=== PATIENT | male | born 1990 | race Two or more races ===

== ENCOUNTER 2023-07-22 17:35 | Inpatient (IN) | payer MEDICAID, OTHER ==
[~2023-07-22] VITALS: Ht 170.2 cm; Wt 73.1 kg
[2023-07-22] MEDS ORDERED: ONDANSETRON ODT 4 MG TAB PO ONE (21:45)
[2023-07-22] MEDS ORDERED: MORPHINE SULFATE 4 MG/ML SYR/VIAL IM ONE (21:45)
[2023-07-22 22:23] LABS: Basophils # (auto) 0 10 ^3/uL (0-0.2); Basophils % (auto) 0.1 % (0.0-2.0); Eosinophils # (auto) 0.1 10 ^3/uL (0-0.8); Eosinophils % (auto) 1.3 % (0.0-7.0); Hematocrit 40.7 % (41.0-53.0); Lymphocytes # (auto) 3.4 10 ^3/uL (0.4-5.4); Lymphocytes % (auto) 43.7 % (10.0-50.0); Mean Corpuscular Hemoglobin 30.7 pg (28.0-32.0); Mean Corpuscular Hgb Conc. 34.4 g/dL (32.0-36.0); Mean Corpuscular Volume 89.1 fL (80.0-100.0); Monocytes # (auto) 0.5 10 ^3/uL (0-1.3); Monocytes % (auto) 6.7 % (0.0-12.0); Neutrophils # (auto) 3.7 10 ^3/uL (1.6-8.6); Neutrophils % (auto) 48.2 % (37.0-80.0); Nucleated Red Blood Cells % 0.1 %; Red Blood Cells 4.57 10^6/uL (4.5-5.90); Red Cell Distribution Width 13.4 % (11.8-14.3); White Blood Cell 7.7 10^3/uL (4.4-10.8)
[2023-07-22 22:36] LABS: Alanine Aminotransferase 19 U/L (7-40); Alkaline Phosphatase 75 U/L (46-116); Anion Gap 8 (5-15); Aspartate Aminotransferase 18 U/L (13-40); BUN/Creatinine Ratio 8.5 (10.0-20.0); Blood Urea Nitrogen 7 mg/dL (9-23); Calcium 9.7 mg/dL (8.7-10.4); Carbon Dioxide 27 mmol/L (20-30); Chloride 103 mmol/L (98-107); Glucose 130 mg/dL (74-106); Lipase 39 U/L (12-53); Magnesium 2.1 mg/dL (1.6-2.6); Potassium 3.8 mmol/L (3.5-5.1); Sodium 138 mmol/L (136-145)
[2023-07-22 22:37] LABS: Bilirubin, Total 0.4 mg/dL (0.2-1.0); Total Protein 7.6 g/dL (5.7-8.2)
[2023-07-23] MEDS ORDERED: ONDANSETRON HCL 4 MG/2 ML VIAL IV ONE (03:30)
[2023-07-23] MEDS ORDERED: MORPHINE SULFATE 4 MG/ML SYR/VIAL IV ONE (03:30)
[2023-07-23] MEDS: ENOXAPARIN SOD 80 MG/0.8ML SYRINGE SC ONE ×2 (04:30→06:36)
[2023-07-23] MEDS ORDERED: HYDROcodone-ACET 5/325MG TAB PO PRN (05:00)
[2023-07-23] MEDS ORDERED: MORPHINE SULFATE INJ 2 MG/ml SYRG IV PRN ×2 (05:00→06:30)
[2023-07-23] MEDS ORDERED: DEXTROSE (50%) 50ML SYRG IV PRN (05:00)
[2023-07-23] MEDS ORDERED: DOCUSATE SOD 100 MG CAP PO PRN (05:00)
[2023-07-23] MEDS ORDERED: ACETAMINOPHEN 325 MG TAB PO PRN (05:00)
[2023-07-23] MEDS ORDERED: NITROGLYCERIN 0.4 MG SL TAB SL PRN (06:30)
[2023-07-23] MEDS: SODIUM CHLORIDE 0.9% 1,000 ML IV SCH (06:35)
[2023-07-23] MEDS: InsuLIN REG 1unit/0.01ml Soln (100units/ml) SC SCH ×3 (06:40→18:02)
[2023-07-23] MEDS: ACCU-CHEK COMFORT CURVE STRIP VI SCH ×4 (06:43→23:28)
[2023-07-23 07:44] LABS: Alanine Aminotransferase 21 U/L (7-40); Alkaline Phosphatase 61 U/L (46-116); Anion Gap 7 (5-15); Aspartate Aminotransferase 12 U/L (13-40); BUN/Creatinine Ratio 9.8 (10.0-20.0); Blood Urea Nitrogen 8 mg/dL (9-23); Calcium 9.4 mg/dL (8.5-10.1); Carbon Dioxide 27 mmol/L (20-30); Chloride 102 mmol/L (98-107); Glucose 150 mg/dL (74-106); Potassium 3.8 mmol/L (3.5-5.1); Sodium 136 mmol/L (136-145)
[2023-07-23 07:45] LABS: Bilirubin, Total 0.8 mg/dL (0.2-1.0); Total Protein 7.4 g/dL (5.7-8.2)
[2023-07-23 07:54] LABS: Basophils # (auto) 0 10 ^3/uL (0-0.2); Basophils % (auto) 0.4 % (0.0-2.0); Eosinophils # (auto) 0.1 10 ^3/uL (0-0.8); Eosinophils % (auto) 1.5 % (0.0-7.0); Hematocrit 39.4 % (41.0-53.0); Hemoglobin 13.4 g/dL (13.5-17.5); Lymphocytes # (auto) 2.6 10 ^3/uL (0.4-5.4); Lymphocytes % (auto) 39.8 % (10.0-50.0); Mean Corpuscular Hemoglobin 30.3 pg (28.0-32.0); Mean Corpuscular Volume 89.2 fL (80.0-100.0); Monocytes # (auto) 0.5 10 ^3/uL (0-1.3); Neutrophils # (auto) 3.4 10 ^3/uL (1.6-8.6); Neutrophils % (auto) 51.3 % (37.0-80.0); Nucleated Red Blood Cells % 0.1 %; Red Blood Cells 4.41 10^6/uL (4.5-5.90); Red Cell Distribution Width 13.5 % (11.8-14.3); White Blood Cell 6.6 10^3/uL (4.4-10.8)
[2023-07-23] MEDS: ONDANSETRON HCL 4 MG/2 ML VIAL IV PRN ×3 (08:07→16:13)
[2023-07-23] MEDS: HYDROmorphone HCL 2 MG/ML VL/or syr IV PRN ×4 (08:08→20:27)
[2023-07-23 08:45] VITALS: RESP 18
[2023-07-23] MEDS ORDERED: IOHEXOL 300 MG/ML 100ML BOTTLE IJ ONE (08:58)
[2023-07-23] MEDS ORDERED: METF-370 PO (11:15)
[2023-07-23 11:32] LABS: Partial Thromboplastin Time 32.4 SEC (24.5-34.5); Prothrombin Time 10.5 sec (9.3-11.8)
[2023-07-23 13:00] VITALS: BP 133/84; PULSE 55; RESP 19; TEMP 97; O2SAT 98
[2023-07-23 14:24] LABS: Triglycerides 459 mg/dL (< 150)
[2023-07-23 14:26] LABS: Cholesterol 169 mg/dL (< 200); HDL Cholesterol 35 mg/dL (40-59)
[2023-07-23 17:00] VITALS: BP 123/78; PULSE 64; RESP 18; TEMP 98.7; O2SAT 99
[2023-07-23 20:00] VITALS: PULSE 53; PULSE 58; RESP 17; O2SAT 98
[2023-07-23 22:00] VITALS: BP 131/83; PULSE 58; RESP 17; TEMP 97.7; O2SAT 98
[2023-07-23] MEDS ORDERED: ENOXAPARIN SOD 80 MG/0.8ML SYRINGE SC SCH (22:00)
[2023-07-23] MEDS ORDERED: InsuLIN REG 1unit/0.01ml Soln (100units/ml) SC SCH (22:00)
[2023-07-24] MEDS: HYDROmorphone HCL 2 MG/ML VL/or syr IV PRN ×3 (00:58→10:44)
[2023-07-24] MEDS: SODIUM CHLORIDE 0.9% 1,000 ML IV SCH ×2 (01:02→15:17)
[2023-07-24 05:00] VITALS: BP 131/73; PULSE 66; RESP 17; TEMP 98.1; O2SAT 95
[2023-07-24 05:32] LABS: Basophils # (auto) 0 10 ^3/uL (0-0.2); Basophils % (auto) 0.3 % (0.0-2.0); Eosinophils # (auto) 0.1 10 ^3/uL (0-0.8); Eosinophils % (auto) 1.9 % (0.0-7.0); Hematocrit 39.3 % (41.0-53.0); Hemoglobin 13.3 g/dL (13.5-17.5); Lymphocytes # (auto) 2.4 10 ^3/uL (0.4-5.4); Lymphocytes % (auto) 41.5 % (10.0-50.0); Mean Corpuscular Hemoglobin 30.5 pg (28.0-32.0); Mean Corpuscular Hgb Conc. 33.8 g/dL (32.0-36.0); Monocytes # (auto) 0.4 10 ^3/uL (0-1.3); Neutrophils # (auto) 2.8 10 ^3/uL (1.6-8.6); Neutrophils % (auto) 49.3 % (37.0-80.0); Red Blood Cells 4.36 10^6/uL (4.5-5.90); White Blood Cell 5.7 10^3/uL (4.4-10.8)
[2023-07-24 05:58] LABS: Alanine Aminotransferase 16 U/L (7-40); Albumin 4.4 g/dL (3.2-4.8); Alkaline Phosphatase 59 U/L (46-116); Anion Gap 5 (5-15); Aspartate Aminotransferase 17 U/L (13-40); Bilirubin, Total 0.8 mg/dL (0.2-1.0); Carbon Dioxide 27 mmol/L (20-30); Chloride 105 mmol/L (98-107); Glucose 130 mg/dL (74-106); Potassium 4.1 mmol/L (3.5-5.1); Sodium 137 mmol/L (136-145); Total Protein 6.6 g/dL (5.7-8.2)
[2023-07-24 05:59] LABS: Blood Urea Nitrogen < 5 mg/dL (9-23)
[2023-07-24] MEDS: ACCU-CHEK COMFORT CURVE STRIP VI SCH ×2 (06:05→12:17)
[2023-07-24] MEDS: InsuLIN REG 1unit/0.01ml Soln (100units/ml) SC SCH ×2 (06:10→11:30)
[2023-07-24 08:00] VITALS: PULSE 57; PULSE 64; RESP 14; O2SAT 98
[2023-07-24 09:00] VITALS: BP 108/72; PULSE 64; RESP 14; TEMP 97.7; O2SAT 98
[2023-07-24] MEDS ORDERED: ENOXAPARIN SOD 80 MG/0.8ML SYRINGE SC SCH (10:00)
[2023-07-24 13:00] VITALS: BP 128/78; PULSE 61; RESP 18; TEMP 97.5; O2SAT 99
[2023-07-24] MEDS ORDERED: MORPHINE SULFATE INJ 2 MG/ml SYRG IV PRN ×3 (14:45→15:15)
[2023-07-24 15:18] VITALS: BP 127/76; PULSE 58; RESP 18
[2023-07-24] MEDS ORDERED: SUCRALFATE 1 GM TAB PO SCH (17:00)
[2023-07-24] MEDS ORDERED: PANTOPRAZOLE 40 MG/10 ML VIAL INJ IV SCH (22:00)
== END 2023-07-24 15:40 | disposition left against medical advice (07) | DRG 241 ==
LOC: ER 17:35 → TELE 07-23 06:32 → TELE-WESTW 07-23 11:02
PROVIDERS: ADMIT Internal Medicine Pulmonary Disease; ATTEND Student in an Organized Health Care Education/Training Program
DX: K29.70 Gastritis, unspecified, without bleeding (principal); E11.65 Type 2 diabetes mellitus with hyperglycemia; E78.1 Pure hyperglyceridemia; F17.290 Nicotine dependence, other tobacco product, uncomplicated; K86.1 Other chronic pancreatitis; G89.29 Other chronic pain; Z82.49 Family history of ischemic heart disease and other diseases of the circulatory system; Z83.3 Family history of diabetes mellitus; Z87.19 Personal history of other diseases of the digestive system; Z91.199 Patient's noncompliance with other medical treatment and regimen due to unspecified reason; Z53.29 Procedure and treatment not carried out because of patient's decision for other reasons
CPT/HCPCS: 36415; 74176; 74177; 80053; 80061; 82010; 82962; 83036; 83690; 83735; 83930; 84484; 85025; 85610; 85730; 93306; G0378; J1815; J2405; Q0162

== ENCOUNTER 2023-11-24 20:12 | Emergency (ER) | payer MEDICAID ==
[~2023-11-24] VITALS: Ht 170.2 cm; Wt 65.6 kg
[~2023-11-24 20:12] MED LIST: METF-370 PO
[2023-11-24 21:34] LABS: Basophils # (auto) 0 10 ^3/uL (0-0.2); Basophils % (auto) 0.4 % (0.0-2.0); Eosinophils # (auto) 0.1 10 ^3/uL (0-0.8); Eosinophils % (auto) 1.5 % (0.0-7.0); Hematocrit 39.8 % (41.0-53.0); Hemoglobin 13.3 g/dL (13.5-17.5); Lymphocytes # (auto) 3.1 10 ^3/uL (0.4-5.4); Lymphocytes % (auto) 40.5 % (10.0-50.0); Mean Corpuscular Hemoglobin 28.9 pg (28.0-32.0); Mean Corpuscular Hgb Conc. 33.4 g/dL (32.0-36.0); Mean Corpuscular Volume 86.6 fL (80.0-100.0); Monocytes # (auto) 0.6 10 ^3/uL (0-1.3); Monocytes % (auto) 8.2 % (0.0-12.0); Neutrophils # (auto) 3.7 10 ^3/uL (1.6-8.6); Neutrophils % (auto) 49.4 % (37.0-80.0); Nucleated Red Blood Cells % 0.1 %; Red Blood Cells 4.59 10^6/uL (4.5-5.90); Red Cell Distribution Width 14.3 % (11.8-14.3); White Blood Cell 7.6 10^3/uL (4.4-10.8)
[2023-11-24 21:55] LABS: Alanine Aminotransferase 19 U/L (7-40); Alkaline Phosphatase 79 U/L (46-116); Aspartate Aminotransferase 13 U/L (13-40); BUN/Creatinine Ratio 15.2 (10.0-20.0); Bilirubin, Total 0.5 mg/dL (0.2-1.0); Blood Urea Nitrogen 12 mg/dL (9-23); Chloride 106 mmol/L (98-107); Glucose 205 mg/dL (74-106); Lipase 55 U/L (12-53); Potassium 3.8 mmol/L (3.5-5.1); Sodium 141 mmol/L (136-145); Total Protein 7.4 g/dL (5.7-8.2)
[2023-11-24 22:19] LABS: Anion Gap 8 (5-15); Carbon Dioxide 27 mmol/L (20-30)
[2023-11-25] MEDS: SODIUM CHLORIDE 0.9% 1,000 ML IV ONE (03:00)
[2023-11-25] MEDS: HYDROmorphone HCL 2 MG/ML VL/or syr IM ONE (03:00)
[2023-11-25 06:02] VITALS: BP 118/66; PULSE 61; RESP 14; TEMP 98; O2SAT 99
== END 2023-11-25 07:50 | disposition left against medical advice (07) ==
LOC: ER 20:12
DX: K85.90 Acute pancreatitis without necrosis or infection, unspecified (principal); K86.3 Pseudocyst of pancreas; E11.65 Type 2 diabetes mellitus with hyperglycemia; Z79.899 Other long term (current) drug therapy
CPT/HCPCS: 36415; 74176; 80053; 83690; 85025; 96360; 96361; 96372; 99285; J1170; J7030

== ENCOUNTER 2025-09-09 23:49 | Inpatient (IN) | payer MEDICAID ==
[~2025-09-09] VITALS: Ht 167.6 cm; Wt 67.1 kg
--- NOTE | 2025-09-10 01:09 | ED.PDOC ---
History of Present Illness HPI Comments 35-year-old male presents with chief complaint of nonradiating, diffused abdominal pain. Patient reports history of abdominal pain flare-ups with chronic pancreatitis for the past 5-6 years. Most recent onset of pain is stated to have take place, suddenly and unprovoked, yesterday evening. He denies any further associated symptoms, such as nausea or vomiting. Patient reports on being told on needing an endoscopy but has, yet, to have procedure done in addition to being taken off his metformin for the past 2 months. No recent sick contacts, prior ailments, travel, spoiled food consumption, or injuries. Chief Complaint: Abdominal Pain Time Seen by MD: 01:00 Primary Care Provider: Unknown Reviewed Notes: Nurses Notes Allergies: Coded Allergies: NO KNOWN ALLERGIES (Unverified , 07/22/23) Home Meds Reported Medications Metformin Hydrochloride (Metformin Hcl) 500 Mg Tab, 500 MG PO DAILY for 30 Days, MG 07/23/23 Information Source: Patient Mode of Arrival: Ambulatory Severity: Moderate Timing: Hours Duration: Since onset Prehospital treatment: None Past Medical History PAST MEDICAL HISTORY: DM Past Medical History (Other): Chronic pancreatitis Surgical History: Denies all surgeries Family History Family History: Unknown Social History Smoker: Other Alcohol: Denies ETOH Use Drugs: Denies Drug Use Lives In: Home All Other Systems: Reviewed and Negative (Comprehensive review of systems are negative unless otherwise stated in HPI) Physical Exam General Appearance: Mild Distress, Normal HEENT: Normal ENT Inspection, Pharynx Normal, TMs Normal Neck: Full Range of Motion, Non-Tender, Normal, Normal Inspection Respiratory: Chest Non-Tender, Lungs Clear, No Accessory Muscle Use, No Respiratory Distress, Normal Breath Sounds Cardiovascular: No Edema, No JVD, No Murmur, No Gallop, Normal Peripheral Pulses, Regular Rate/Rhythm Breast Exam: Deferred Gastrointestinal: LLQ (Tenderness, mild), LUQ (Tenderness, mild), No Org anomegaly, No Pulsatile Mass, Normal Bowel Sounds, RLQ (Tenderness, mild), RUQ (Tenderness, mild), Soft, Tenderness (Mild tenderness to all 4 quadrants) Genitalia: Deferred Pelvic: Deferred Rectal: Deferred Extremities: No calf tenderness, Normal capillary refill, Normal inspection, Normal range of motion, Non-tender, No pedal edema Musculoskeletal : Apperance: Normal Neurologic: Alert, rotary drum tanner II-XII nml as Tested, No Motor Deficits, Normal Affect, Normal Mood, No Sensory Deficits Cerebellar Function: Normal Reflexes: Normal Skin: Dry, Normal Color, Warm Lymphatic: No Adenopathy Was a procedure done? Was a procedure done?: No Differential Dx Considerations may include: Pancreatitis flare-up, gastritis, gastroenteritis, GERD, cholelithiasis, cholecystitis, appendicitis, diverticulitis, among others X-Ray, Labs, Meds, VS Vital Signs Date Time Temp Pulse Resp B/P (MAP) Pulse Ox O2 Delivery O2 Flow Rate FiO2 09/10/25 03:14 98.4 88 18 133/92 (106) 99 98.4 09/10/25 01:00 98.0 86 20 133/89 (104) 98 98.0 09/09/25 23:57 97.8 79 16 130/95 99 97.8 Lab Test 09/10/25 01:00 09/10/25 00:59 Range/Units Urine Color Light-yellow Yellow Urine Clarity Clear Clear Urine pH 7.0 5.0-9.0 Urine Specific [place] 1.040 H 1.001-1.035 Urine Protein Negative Negative Urine Ketones 1+ H Negative Urine Blood Negative Negative /uL Urine Nitrite Negative Negative Urine Bilirubin Negative Negative Urine Urobilinogen Normal Negative mg/dL Urine Leukocyte Esterase Negative Negative /uL Urine RBC 1 0 - 3 /hpf Urine Microscopic WBC 0-3 /HPF Urine Squamous Epithelial Cells None seen <5 /hpf Urine Bacteria None seen None Seen /hpf Urine Glucose 4+ H Normal mg/dL White Blood Count 6.8 4.4-10.8 10^3/uL Red Blood Count 4.83 4.5-5.90 10^6/uL Hemoglobin 15.8 13.5-17.5 g/dL Hematocrit 41.8 41.0-53.0 % Mean Corpuscular Volume 86.5 80.0-100.0 fL Mean Corpuscular Hemoglobin 32.7 H 28.0-32.0 pg Mean Corpuscular Hemoglobin Concent 37.8 H 32.0-36.0 g/dL Red Cell Distribution Width 13.4 11.8-14.3 % Platelet Count 238 140-450 10^3/uL Mean Platelet Volume 9.8 6.9-10.8 fL Neutrophils (%) (Auto) 55.5 37.0-80.0 % Lymphocytes (%) (Auto) 35.0 10.0-50.0 % Monocytes (%) (Auto) 7.0 0.0-12.0 % Eosinophils (%) (Auto) 1.6 0.0-7.0 % Basophils (%) (Auto) 0.9 0.0-2.0 % Neutrophils # (Auto) 3.8 1.6-8.6 10 ^3/uL Lymphocytes # (Auto) 2.4 0.4-5.4 10 ^3/uL Monocytes # (Auto) 0.5 0-1.3 10 ^3/uL Eosinophils # (Auto) 0.1 0-0.8 10 ^3/uL Basophils # (Auto) 0.1 0-0.2 10 ^3/uL Nucleated Red Blood Cells 0.5 % Sodium Level 137 136-145 mmol/L Potassium Level 4.7 3.5-5.1 mmol/L Chloride Level 99 98-107 mmol/L Carbon Dioxide Level 27 20-31 mmol/L Anion Gap 11 5-15 Blood Urea Nitrogen 11 9-23 mg/dL Creatinine 0.75 0.700-1.30 mg/dL Glomerular Filtration Rate Calc 121 >90 mL/min BUN/Creatinine Ratio 14.7 10.0-20.0 Serum Glucose 352 H 74-106 mg/dL Calcium Level 10.1 8.7-10.4 mg/dL Total Bilirubin 0.2 0.2-1.0 mg/dL Aspartate Amino Transferase (AST) 33 13-40 U/L Alanine Aminotransferase (ALT) 25 7-40 U/L Alkaline Phosphatase 128 H 46-116 U/L Total Protein 7.7 5.7-8.2 g/dL Albumin 5.4 H 3.2-4.8 g/dL Lipase 30 12-53 U/L Current Medications Medications (Trade) Dose Ordered Sig/Raoul Route Start Time Stop Time Status Last Admin Sodium Chloride 1,000 ml @ 1,000 mls/hr Q1H ONCE IVB 09/10/25 01:00 09/10/25 01:59 DC 09/10/25 01:14 Time of 1ST Reevaluation: 01:30 Reevaluation 1ST: Unchanged Patient Education/Counseling: Diagnosis, Treatment Family Education/Counseling: No Family Present SEPSIS Sepsis Screen Date sepsis recognized/suspect: Sep 09, 2025 Time Sepsis recognized/suspect: 0005 Recent Procedure: No On Antibiotic Therapy: No Respiratory Rate >20: No Heart Rate >90: No Temp<36 C (96.8 F) or >38.3 C: No SBP <90 or MAP <65 mmHG: No New Acute Mental Status Change: No Is the patient on CPAP, BIPAP,: No Physician Orders Ct Ab Pel With Iv Con Only (09/10/25 00:47) Vital Signs Date Time Temp Pulse Resp B/P (MAP) Pulse Ox O2 Delivery O2 Flow Rate FiO2 09/10/25 03:14 98.4 88 18 133/92 (106) 99 98.4 09/10/25 01:00 98.0 86 20 133/89 (104) 98 98.0 09/09/25 23:57 97.8 79 16 130/95 99 97.8 Laboratory Tests Test 09/10/25 00:59 White Blood Count 6.8 10^3/uL (4.4-10.8) Medications Medications Dose Ordered Sig/Raoul Route Start Time Stop Time Status Last Admin Dose Admin Sodium Chloride 1,000 ml @ 1,000 mls/hr Q1H ONCE IVB 09/10/25 01:00 09/10/25 01:59 DC 09/10/25 01:14 Departure 1 Departure Time of Disposition: 03:23 Impression: Primary Impression: Acute on chronic pancreatitis Additional Impressions: Pancreatic pseudocyst Uncontrolled type 2 diabetes mellitus Hyperglycemia Disposition: ADMITTED INPATIENT Admit to: Med Surg Condition: Guarded Comments 35-year-old male with history of chronic pancreatitis now with abdominal pain. Lipase looks okay but his glucose is high 352. On CT there is still evidence of mass or pseudocyst in the tail of the pancreas. Patient will need to be admitted for intractable abdominal pain with pancreatic pseudocyst and acute on chronic pancreatitis and uncontrolled diabetes Critical Care Note Critical Care Time?: Yes (35 min-critical care time only) Critical care comment: Total critical care time: Approximately 36 minutes Due to a high probability of clinically significant, life threatening deterioration, the patient required my highest level of preparedness to intervene emergently and I personally spent this critical care time directly and personally managing the patient. This critical care time included obtaining a history; examining the patient; pulse oximetry; ordering and review of studies; arranging urgent treatment with development of a management plan; evaluation of patient's response to treatment; frequent reassessment; and, discussions with other providers. This critical care time was performed to assess and manage the high probability of imminent, life-threatening deterioration that could result in multi-organ failure. It was exclusive of separately billable procedures and treating other patients. Stability Stability form required: No Heart Score Heart Score: Heart Score Response (Comments) Value History N/A 0 EKG N/A 0 Age N/A 0 Risk Factors N/A 0 Troponin N/A 0 Total 0 I personally scribed for JOSE BELTRÁN MD ([email or web address]) on 09/10/25 at 01:09. Electronically submitted by Gus Em ([email or web address]). JOSE BELTRÁN MD Sep 10, 2025 01:09
[2025-09-10] MEDS: SODIUM CHLORIDE 0.9% 1,000 ML IVB ONE (01:14)
[2025-09-10] MEDS: IOHEXOL 300 MG/ML 100ML BOTTLE IJ ONE (01:14)
[2025-09-10 01:29] LABS: Hematocrit 41.8 % (41.0-53.0); Hemoglobin 15.8 g/dL (13.5-17.5); Mean Corpuscular Hemoglobin 32.7 pg (28.0-32.0); Mean Corpuscular Volume 86.5 fL (80.0-100.0); Nucleated Red Blood Cells % 0.5 %
[2025-09-10 02:12] LABS: Urine Protein, UAD Negative (Negative)
[2025-09-10 02:18] LABS: Anion Gap 11 (5-15); BUN/Creatinine Ratio 14.7 (10.0-20.0)
[2025-09-10 02:22] LABS: Albumin 5.4 g/dL (3.2-4.8); Alkaline Phosphatase 128 U/L (46-116); Bilirubin, Total 0.2 mg/dL (0.2-1.0); Blood Urea Nitrogen 11 mg/dL (9-23); Calcium 10.1 mg/dL (8.7-10.4); Carbon Dioxide 27 mmol/L (20-31); Chloride 99 mmol/L (98-107); Glucose 352 mg/dL (74-106); Lipase 30 U/L (12-53); Potassium 4.7 mmol/L (3.5-5.1); Sodium 137 mmol/L (136-145); Total Protein 7.7 g/dL (5.7-8.2)
[2025-09-10 02:23] LABS: Alanine Aminotransferase 25 U/L (7-40)
--- NOTE | 2025-09-10 03:12 | DVH ---
Exam: CT CT AB PEL WITH IV CON ONLY History: abd pain COMPARISON: CT ABDOMEN PELVIS WITH on DOS: 12/18/24, CT CT AB PEL WO CON-NO ORAL OR IV on DOS: 11/24/23, CT ABD/PEL on DOS: 10/04/23, CT ABD/PEL on DOS: 09/06/23, CT CT AB PEL WITH IV CON ONLY on DOS: 07/23/23 Technique: Multidetector spiral CT of the abdomen and pelvis was performed from lung bases to pubic symphysis. Intravenous contrast was administered during this examination. Portal venous imaging was obtained. Axial, coronal and sagittal multiplanar reformats were performed by the technologist on a separate workstation. Radiation Dose : 1. Abdomen/Pelvis: CTDIvol 12.5 mGy, DLP 654.22 mGy*cm. CONTRAST: Type of contrast: Omnipaque 300 Contrast injected: 100 ml Findings: Lung Bases: No acute or significant lung base finding. Normal heart size. No pleural or pericardial effusion. Liver: The liver is enlarged, measuring 19.3 cm in craniocaudal dimension. No focal lesions. Normal hepatic vascular enhancement. Gallbladder and Biliary Tree: Unremarkable Spleen: Unremarkable. Multiple prominent venous collaterals redemonstrated, likely secondary to sequelae of portal venous hypertension. Pancreas: Slight interval decrease in size of previously described cystic lesion associated with the tail of the pancreas, now measuring 3.6 x 1.4 cm compared with 4.1 x 2.4 cm on the most recent exam, possibly representing evolving and/or diminishing pancreatic pseudocyst. The pancreas is otherwise normal in its parenchymal attenuation and enhancement. Adrenal Glands: Unremarkable Kidneys: No hydronephrosis. Bladder: Unremarkable Bowel: The stomach is grossly normal in appearance. Small bowel and colon are normal in caliber and distribution. The appendix is normal. Ascites: Absent Lymphadenopathy: No mesenteric, retroperitoneal or periportal lymphadenopathy. Abdominal Wall and Mesentery: Unremarkable. Vasculature: The visualized abdominal aorta is normal in size and caliber. Abdominal and pelvic vessels demonstrate normal enhancement. Pelvic Organs: Unremarkable Musculoskeletal: No aggressive focal bony lesions, acute fractures or dislocation. IMPRESSION: 1. No acute abdominal or pelvic finding. 2. Slight interval decrease in size of previously described cystic lesion associated with the tail of the pancreas, now measuring 3.6 x 1.4 cm compared with 4.1 x 2.4 cm on the most recent exam, possibly representing evolving and/or diminishing pancreatic pseudocyst. 3. Probable sequelae of portal venous hypertension. Radiation optimization: All CT scans at this facility use at least one of these dose optimization techniques: automated exposure control mA and/or kV adjustment per patient size (includes targeted exams where dose is matched to clinical indication) or iterative reconstruction.
[2025-09-10] MEDS: ONDANSETRON HCL 4 MG/2 ML VIAL IV ONE (04:26)
[2025-09-10] MEDS: HYDROmorphone HCL 2 MG/ML VL/or syr IV ONE (04:28)
[2025-09-10] MEDS: InsuLIN REG 1unit/0.01ml Soln (100units/ml) SC ONE (04:38)
[2025-09-10] MEDS ORDERED: DEXTROSE (50%) 50ML SYRG IV PRN (05:00)
[2025-09-10] MEDS ORDERED: ONDANSETRON HCL 4 MG/2 ML VIAL IV PRN (05:00)
[2025-09-10] MEDS ORDERED: MORPHINE SULFATE INJ 2 MG/ml SYRG IV PRN (05:00)
[2025-09-10] MEDS ORDERED: ACETAMINOPHEN 500 MG TAB or CAP PO PRN (05:00)
--- NOTE | 2025-09-10 05:07 | DVHHPRES ---
History of Present Illness Resident Creating Document: WILLIE DOOLEY RESIDENT History of Present Illness 35-year-old male presented to the ER with a chief complaint of epigastric abdominal pain radiating to the back for 1 day. Patient reports drinking couple of beers on , and that the pain started yesterday, located e pigastric, sharp, radiating to the back, associated nausea but no episodes of vomiting. Denies fever but reports chills. Reports 5 loose watery bowel movement in the past 1 day. Denies blood in the stool. Denies chest pain, palpitations, respiratory or urinary symptoms. He has been seen in this hospital in 2021 for pancreatitis secondary to alcoholism and has chronic ? Pancreatic cyst 2021 Completed EGD which showed gastritis with H. pylori infection, completed treatment per patient. Past medical history: Chronic alcoholic pancreatitis with pseudocyst diagnosed 2020 with chronic pain under tramadol. Hypertriglyceridemia, diabetes Mellitus, gastritis, noncompliance, AMA. Family history: Non contributory Social History: Drinks couple of beers every other weekend, vapes, denies drug use. Lives with in [place]. Home medication: Tramadol, patient stopped taking metformin for the past couple of months per PCP. Patient seen and examined. Abdomen is soft, tender in epigastrium normoactive. Review of Systems Gastrointestinal: Nausea, Abdominal Pain, Diarrhea Allergies: Coded Allergies: NO KNOWN ALLERGIES (Unverified , 07/22/23) Medications Current Medications Medications Dose Ordered Sig/Raoul Route Start Time Stop Time Status Last Admin Dose Admin Diagnostic Test (Pha) 1 strip ACHS 09/10/25 07:00 UNV Insulin Human Regular HS SC 09/10/25 22:00 UNV Insulin Human Regular AC SC 09/10/25 07:00 UNV Dextrose 50 ml UD PRN IV 09/10/25 05:00 UNV Acetaminophen 500 mg Q4HPRN PRN PO 09/10/25 05:00 UNV Tramadol HCl 50 mg Q4HPRN PRN PO 09/10/25 05:00 UNV Morphine Sulfate 1 mg Q4HPRN PRN IV 09/10/25 05:00 UNV Ondansetron HCl 4 mg Q6HPRN PRN IV 09/10/25 05:00 UNV Exam Vital Signs Vital Signs Date Time Temp Pulse Resp B/P (MAP) Pulse Ox O2 Delivery O2 Flow Rate FiO2 09/10/25 04:28 81 18 121/84 09/10/25 04:18 98.3 100 98.3 General Appearance: Alert, Oriented X3, Cooperative, No acute distress HEENT: Atraumatic Respiratory: Clear to auscultation, Normal air movement Cardiovascular: Regular rate, Normal S1, Normal S2 Abdominal: Normal bowel sounds, Soft, No hepatospenomegaly Extremities: No edema, Normal pulses, No tenderness/swelling Neuro: Normal speech, Strength at 5/5 X4 ext Labs/Xrays Labs Test 09/10/25 01:00 09/10/25 00:59 Range/Units Urine Color Light-yellow Yellow Urine Clarity Clear Clear Urine pH 7.0 5.0-9.0 Urine Specific [place] 1.040 H 1.001-1.035 Urine Protein Negative Negative Urine Ketones 1+ H Negative Urine Blood Negative Negative /uL Urine Nitrite Negative Negative Urine Bilirubin Negative Negative Urine Urobilinogen Normal Negative mg/dL Urine Leukocyte Esterase Negative Negative /uL Urine RBC 1 0 - 3 /hpf Urine Microscopic WBC 0-3 /HPF Urine Squamous Epithelial Cells None seen <5 /hpf Urine Bacteria None seen None Seen /hpf Urine Glucose 4+ H Normal mg/dL White Blood Count 6.8 4.4-10.8 10^3/uL Red Blood Count 4.83 4.5-5.90 10^6/uL Hemoglobin 15.8 13.5-17.5 g/dL Hematocrit 41.8 41.0-53.0 % Mean Corpuscular Volume 86.5 80.0-100.0 fL Mean Corpuscular Hemoglobin 32.7 H 28.0-32.0 pg Mean Corpuscular Hemoglobin Concent 37.8 H 32.0-36.0 g/dL Red Cell Distribution Width 13.4 11.8-14.3 % Platelet Count 238 140-450 10^3/uL Mean Platelet Volume 9.8 6.9-10.8 fL Neutrophils (%) (Auto) 55.5 37.0-80.0 % Lymphocytes (%) (Auto) 35.0 10.0-50.0 % Monocytes (%) (Auto) 7.0 0.0-12.0 % Eosinophils (%) (Auto) 1.6 0.0-7.0 % Basophils (%) (Auto) 0.9 0.0-2.0 % Neutrophils # (Auto) 3.8 1.6-8.6 10 ^3/uL Lymphocytes # (Auto) 2.4 0.4-5.4 10 ^3/uL Monocytes # (Auto) 0.5 0-1.3 10 ^3/uL Eosinophils # (Auto) 0.1 0-0.8 10 ^3/uL Basophils # (Auto) 0.1 0-0.2 10 ^3/uL Nucleated Red Blood Cells 0.5 % Sodium Level 137 136-145 mmol/L Potassium Level 4.7 3.5-5.1 mmol/L Chloride Level 99 98-107 mmol/L Carbon Dioxide Level 27 20-31 mmol/L Anion Gap 11 5-15 Blood Urea Nitrogen 11 9-23 mg/dL Creatinine 0.75 0.700-1.30 mg/dL Glomerular Filtration Rate Calc 121 >90 mL/min BUN/Creatinine Ratio 14.7 10.0-20.0 Serum Glucose 352 H 74-106 mg/dL Calcium Level 10.1 8.7-10.4 mg/dL Total Bilirubin 0.2 0.2-1.0 mg/dL Aspartate Amino Transferase (AST) 33 13-40 U/L Alanine Aminotransferase (ALT) 25 7-40 U/L Alkaline Phosphatase 128 H 46-116 U/L Total Protein 7.7 5.7-8.2 g/dL Albumin 5.4 H 3.2-4.8 g/dL Lipase 30 12-53 U/L SEPSIS Sepsis Screen Date sepsis recognized/suspect: Sep 10, 2025 Time Sepsis recognized/suspect: 0100 Recent Procedure: No On Antibiotic Therapy: No Respiratory Rate >20: No Heart Rate >90: No Temp<36 C (96.8 F) or >38.3 C: No SBP <90 or MAP <65 mmHG: No New Acute Mental Status Change: No Is the patient on CPAP, BIPAP,: No Physician Orders Ct Ab Pel With Iv Con Only (09/10/25 00:47) Admit (09/10/25 04:50) Blood Alcohol (09/10/25 04:50) Drug Screen (09/10/25 04:50) Magnesium (09/10/25 04:50) Thyroid Stimulating Hormone (09/10/25 04:50) Urinalysis (09/10/25 04:50) Vitamin D, 25-Hydroxy (09/10/25 04:50) Glucose Blood (Accu-Chek Comfort Curve T (09/10/25 07:00) Insulin R (Human) (Insulin R) (09/10/25 22:00) Insulin R (Human) (Insulin R) (09/10/25 07:00) Dextrose 50% Syringe (09/10/25 05:00) Acetaminophen Tab Or Cap (Tylenol Tablet (09/10/25 05:00) Tramadol Hcl (Ultram) (09/10/25 05:00) Morphine Sulfate Injection (09/10/25 05:00) Ondansetron Hcl (Zofran) (09/10/25 05:00) * [facility]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 (09/10/25 04:53) Clear Liq Diet (09/10/25 Breakfast) Vital Signs Date Time Temp Pulse Resp B/P (MAP) Pulse Ox O2 Delivery O2 Flow Rate FiO2 09/10/25 04:28 81 18 121/84 09/10/25 04:18 98.3 81 18 121/84 (96) 100 98.3 09/10/25 03:14 98.4 88 18 133/92 (106) 99 98.4 09/10/25 01:00 98.0 86 20 133/89 (104) 98 98.0 09/09/25 23:57 97.8 79 16 130/95 99 97.8 Laboratory Tests Test 09/10/25 00:59 White Blood Count 6.8 10^3/uL (4.4-10.8) Medications Medications Dose Ordered Sig/Raoul Route Start Time Stop Time Status Last Admin Dose Admin Hydromorphone HCl 1 mg ONCE ONCE IV 09/10/25 03:30 09/10/25 03:31 DC 09/10/25 04:28 1 MG Insulin Human Regular 5 units ONCE ONCE SC 09/10/25 03:30 09/10/25 03:31 DC 09/10/25 04:38 5 UNITS Ondansetron HCl 4 mg ONCE ONCE IV 09/10/25 03:30 09/10/25 03:31 DC 09/10/25 04:26 4 MG Sodium Chloride 1,000 ml @ 1,000 mls/hr Q1H ONCE IVB 09/10/25 01:00 09/10/25 01:59 DC 09/10/25 01:14 1,000 MLS/HR Assessment/Plan Assessment/Plan Epigastric pain likely acute on chronic pancreatitis ? Chronic pancreatic cyst Uncontrolled Hyperglycemia Likely uncontrolled type 2 diabetes mellitus-not on medications History of gastritis History of H pylori Hepatic steatosis ? Portal venous hypertension Alcoholic dependence CT abdomen without contrast shows cystic lesion in tail of pancreas now measuring 3.6 X1.4 cm compared with 4.1 x 2.4 cm on the most recent exam, Previously 5.5X2.7 on 11/2023 Slight interval decrease in size of previously described cystic lesion associated with the tail of the pancreas, now measuring 3.6 x 1.4 cm compared with 4.1 x 2.4 cm on the most recent exam, possibly representing evolving and/or diminishing pancreatic pseudocyst. The pancreas is otherwise normal in its parenchymal attenuation and enhancement. Last EGD 2021 per patient Plan: Clear liquid diet, IV Zofran PRN LR 75 cc/hour GI consultation for pancreatic cyst and the need of pancreatic enzyme supplements Pantoprazole 40 mg IV daily Moderate sliding scale Follow up with the A1c levels, blood alcohol Follow up with the stool WBC Plan discussed with the patient in which all questions have been answered Goals of care discussed with patient for more than 22 minutes, full code status Case discussed with Dr. Pratt Plan discussed with: Patient My Orders Orders - WILLIE DOOLEY RESIDENT Procedure Category Date Status Time Admit ADMIT 09/10/25 Transmitted 04:50 Blood Alcohol LAB 09/10/25 Logged 04:50 Drug Screen LAB 09/10/25 Logged 04:50 Magnesium LAB 09/10/25 Logged 04:50 Thyroid Stimulating LAB 09/10/25 Logged Hormone 04:50 Urinalysis LAB 09/10/25 Logged 04:50 Vitamin D, 25-Hydroxy LAB 09/10/25 Logged 04:50 Glucose Blood PHA 09/10/25 Logged (Accu-Chek Comfort 07:00 Insulin R (Human) PHA 09/10/25 Logged (Insulin R) 22:00 Insulin R (Human) PHA 09/10/25 Logged (Insulin R) 07:00 Dextrose 50% Syringe PHA 09/10/25 Logged 05:00 Acetaminophen Tab Or PHA 09/10/25 Logged Cap (Tylenol Tablet 05:00 Tramadol Hcl (Ultram) PHA 09/10/25 Logged 05:00 Morphine Sulfate PHA 09/10/25 Logged Injection 05:00 Ondansetron Hcl PHA 09/10/25 Logged (Zofran) 05:00 * [facility]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 CONS 09/10/25 Transmitted 04:53 Clear Liq Diet DIET 09/10/25 Transmitted Breakfast Date of Service: Sep 10, 2025 Billing Provider: KENIA PRATT MD Common Visit Codes: [id number] INP/OBS CARE (HIGH) WILLIE DOOLEY RESIDENT Sep 10, 2025 05:07
[2025-09-10 05:37] LABS: Amphetamine Screen, Urine Neg (NEGATIVE); Barbiturate Scree,Urine Neg (NEGATIVE); Benzodiazephine Screen, Urine Neg (NEGATIVE); Cocaine Screen, Urine Neg (NEGATIVE); Opiate Scree,Urine Neg (NEGATIVE); Phencyclidine Screen, Urine Neg (NEGATIVE)
[2025-09-10 05:38] LABS: Cannabinoid Screen, Urine Neg (NEGATIVE)
[2025-09-10 06:15] LABS: INR 0.92 (0.9-1.15); Partial Thromboplastin Time 26.6 SEC (24.5-34.5); Prothrombin Time 9.8 sec (9.3-11.8)
[2025-09-10] MEDS: PANTOPRAZOLE 40 MG/10 ML VIAL INJ IV SCH (06:35)
[2025-09-10] MEDS: ACCU-CHEK COMFORT CURVE STRIP VI SCH (06:39)
[2025-09-10] MEDS: InsuLIN REG 1unit/0.01ml Soln (100units/ml) SC SCH (06:42)
[2025-09-10 06:46] LABS: Magnesium 2.0 mg/dL (1.6-2.6)
[2025-09-10] MEDS: LACTATED RINGER'S 1,000 ML IV ONE (07:28)
[2025-09-10 08:55] VITALS: BP 121/71; PULSE 66; RESP 14; TEMP 97.8; O2SAT 93
[2025-09-10] MEDS ORDERED: TRAM50TA2 PO (09:20)
[2025-09-10 11:04] LABS: Free T4 (Free Thyroxine) 1.47 ng/dL (0.89-1.76)
[2025-09-10] MEDS ORDERED: ERGOCALCIFEROL 50,000 UNIT(1.25MG) CAP PO SCH (11:30)
[2025-09-10] MEDS ORDERED: SODIUM CHLORIDE 0.9% 1,000 ML IV ONE (12:45)
--- NOTE | 2025-09-10 12:52 | DVHINCON2 ---
GI Consult Consult Note GI consult note Date of Consultation: 09/10/2025 Chief Complaint: Epigastric pain Referring Physician: Dr. Solano H&P: 35-year-old male admitted with complains of epigastric abdominal pain for one day. No nausea vomiting. Patient admits to having loose stool yesterday about six episodes none today. No melena or red blood in stool Patient has similar episodes of abdominal pain in the past diagnosed with pancreatitis Status post EGD 2021 diagnosed with H. pylori and patient has completed treatment for this Admits to decreased alcohol intake but did have a few drinks over the Past Medical History: Chronic alcoholic pancreatitis, hypertriglyceridemia, diabetes mellitus, gastritis Past Surgical History: Denies Social History: NO smoking, occasional drinking ETOH Family History: Noncontributory Review of Systems: Constitutional: no fever, chill, weight loss HEENT: no eye pain, no hearing loss, no oral lesion, no scleral icterus Heart: no chest pain, no chest pressure Lung: no cough, no dyspnea with exertion Abdomen: see HPI Physical exam: General: NAD, AAOX3 Chest: lung oates clear to auscultation Heart: RRR, no murmur Abdomen: + tenderness to palpation, +BS Labs: Labs Test 09/10/25 11:22 09/10/25 05:23 09/10/25 01:00 09/10/25 00:59 Range/Units POC Glucose 116 H 70-106 mg/dl Magnesium Level 2.0 1.6-2.6 mg/dL Vitamin D 25-Hydroxy 19.8 L 30.0-100 ng/mL Free Thyroxine (T4) Calculated 1.47 0.89-1.76 ng/dL Total Triiodothyronine (TT3) 1.22 0.60-1.81 ng/mL Plasma/Serum Blood Alcohol < 3.0 <10 mg/dL Urine Color Light-yellow Yellow Urine Clarity Clear Clear Urine pH 7.0 5.0-9.0 Urine Specific [place] 1.040 H 1.001-1.035 Urine Protein Negative Negative Urine Ketones 1+ H Negative Urine Blood Negative Negative /uL Urine Nitrite Negative Negative Urine Bilirubin Negative Negative Urine Urobilinogen Normal Negative mg/dL Urine Leukocyte Esterase Negative Negative /uL Urine RBC 1 0 - 3 /hpf Urine Microscopic WBC 0-3 /HPF Urine Squamous Epithelial Cells None seen <5 /hpf Urine Bacteria None seen None Seen /hpf Urine Glucose 4+ H Normal mg/dL Urine Opiates Screen Neg NEGATIVE Urine Fentanyl Screen Neg NEGATIVE Urine Barbiturates Screen Neg NEGATIVE Urine Phencyclidine Screen Neg NEGATIVE Urine Amphetamines Screen Neg NEGATIVE Urine Benzodiazepines Screen Neg NEGATIVE Urine Cocaine Screen Neg NEGATIVE Urine Cannabinoids Screen Neg NEGATIVE White Blood Count 6.8 4.4-10.8 10^3/uL Red Blood Count 4.83 4.5-5.90 10^6/uL Hemoglobin 15.8 13.5-17.5 g/dL Hematocrit 41.8 41.0-53.0 % Mean Corpuscular Volume 86.5 80.0-100.0 fL Mean Corpuscular Hemoglobin 32.7 H 28.0-32.0 pg Mean Corpuscular Hemoglobin Concent 37.8 H 32.0-36.0 g/dL Red Cell Distribution Width 13.4 11.8-14.3 % Platelet Count 238 140-450 10^3/uL Mean Platelet Volume 9.8 6.9-10.8 fL Neutrophils (%) (Auto) 55.5 37.0-80.0 % Lymphocytes (%) (Auto) 35.0 10.0-50.0 % Monocytes (%) (Auto) 7.0 0.0-12.0 % Eosinophils (%) (Auto) 1.6 0.0-7.0 % Basophils (%) (Auto) 0.9 0.0-2.0 % Neutrophils # (Auto) 3.8 1.6-8.6 10 ^3/uL Lymphocytes # (Auto) 2.4 0.4-5.4 10 ^3/uL Monocytes # (Auto) 0.5 0-1.3 10 ^3/uL Eosinophils # (Auto) 0.1 0-0.8 10 ^3/uL Basophils # (Auto) 0.1 0-0.2 10 ^3/uL Nucleated Red Blood Cells 0.5 % Prothrombin Time 9.8 9.3-11.8 sec Prothrombin Time INR 0.92 0.9-1.15 Activated Partial Thromboplast Time 26.6 24.5-34.5 SEC Sodium Level 137 136-145 mmol/L Potassium Level 4.7 3.5-5.1 mmol/L Chloride Level 99 98-107 mmol/L Carbon Dioxide Level 27 20-31 mmol/L Anion Gap 11 5-15 Blood Urea Nitrogen 11 9-23 mg/dL Creatinine 0.75 0.700-1.30 mg/dL Glomerular Filtration Rate Calc 121 >90 mL/min BUN/Creatinine Ratio 14.7 10.0-20.0 Serum Glucose 352 H 74-106 mg/dL Hemoglobin A1c 7.8 H <5.7 % A1C Calcium Level 10.1 8.7-10.4 mg/dL Total Bilirubin 0.2 0.2-1.0 mg/dL Aspartate Amino Transferase (AST) 33 13-40 U/L Alanine Aminotransferase (ALT) 25 7-40 U/L Alkaline Phosphatase 128 H 46-116 U/L Total Protein 7.7 5.7-8.2 g/dL Albumin 5.4 H 3.2-4.8 g/dL Lipase 30 12-53 U/L Thyroid Stimulating Hormone (TSH) 5.17 H 0.55-4.78 uIU/mL Imaging: CT abdomen pelvis IMPRESSION: 1. No acute abdominal or pelvic finding. 2. Slight interval decrease in size of previously described cystic lesion associated with the tail of the pancreas, now measuring 3.6 x 1.4 cm compared with 4.1 x 2.4 cm on the most recent exam, possibly representing evolving and/or diminishing pancreatic pseudocyst. 3. Probable sequelae of portal venous hypertension. Assessment: Epigastric pain Possible acute on chronic pancreatitis Pancreatic pseudocyst History of gastritis History of H. pylori Alcohol use Plan: Discussed with Dr. Gomez Monitor labs Pain management per hospital team Clear liquid diet advance to full liquid as tolerated DC alcohol discussed extensively Possible treatment with pancreatic enzyme supplements we will be addressed on an outpatient basis Follow-up on an outpatient basis for elective EGD Plan discussed with patient and RN Thank you for this consult Date of Service: Sep 10, 2025 Billing Provider: STELLA MANDEL Common Visit Codes: CONSULT ONLY Consultation Codes: [id number] CONSULT <60MIN STELLA MANDEL Sep 10, 2025 12:52
--- NOTE | 2025-09-10 14:20 | DVHDSRES ---
Discharge Summary Date of Admission Resident Creating Document: MALIKA MESA RESIDENT Sep 10, 2025 at 04:50 Date of Discharge: Sep 10, 2025 Labs/Diagnostic Data: Laboratory Results Test 09/10/25 11:22 09/10/25 05:23 09/10/25 01:00 09/10/25 00:59 POC Glucose 116 mg/dl (70-106) Magnesium Level 2.0 mg/dL (1.6-2.6) Vitamin D 25-Hydroxy 19.8 ng/mL (30.0-100) Free Thyroxine (T4) Calculated 1.47 ng/dL (0.89-1.76) Total Triiodothyronine (TT3) 1.22 ng/mL (0.60-1.81) Plasma/Serum Blood Alcohol < 3.0 mg/dL (<10) Urine Color Light-yellow (Yellow) Urine Clarity Clear (Clear) Urine pH 7.0 (5.0-9.0) Urine Specific [place] 1.040 (1.001-1.035) Urine Protein Negative (Negative) Urine Ketones 1+ (Negative) Urine Blood Negative /uL (Negative) Urine Nitrite Negative (Negative) Urine Bilirubin Negative (Negative) Urine Urobilinogen Normal mg/dL (Negative) Urine Leukocyte Esterase Negative /uL (Negative) Urine RBC 1 /hpf (0 - 3) Urine Microscopic WBC /HPF (0-3) Urine Squamous Epithelial Cells None seen /hpf (<5) Urine Bacteria None seen /hpf (None Seen) Urine Glucose 4+ mg/dL (Normal) Urine Opiates Screen Neg (NEGATIVE) Urine Fentanyl Screen Neg (NEGATIVE) Urine Barbiturates Screen Neg (NEGATIVE) Urine Phencyclidine Screen Neg (NEGATIVE) Urine Amphetamines Screen Neg (NEGATIVE) Urine Benzodiazepines Screen Neg (NEGATIVE) Urine Cocaine Screen Neg (NEGATIVE) Urine Cannabinoids Screen Neg (NEGATIVE) White Blood Count 6.8 10^3/uL (4.4-10.8) Red Blood Count 4.83 10^6/uL (4.5-5.90) Hemoglobin 15.8 g/dL (13.5-17.5) Hematocrit 41.8 % (41.0-53.0) Mean Corpuscular Volume 86.5 fL (80.0-100.0) Mean Corpuscular Hemoglobin 32.7 pg (28.0-32.0) Mean Corpuscular Hemoglobin Concent 37.8 g/dL (32.0-36.0) Red Cell Distribution Width 13.4 % (11.8-14.3) Platelet Count 238 10^3/uL (140-450) Mean Platelet Volume 9.8 fL (6.9-10.8) Neutrophils (%) (Auto) 55.5 % (37.0-80.0) Lymphocytes (%) (Auto) 35.0 % (10.0-50.0) Monocytes (%) (Auto) 7.0 % (0.0-12.0) Eosinophils (%) (Auto) 1.6 % (0.0-7.0) Basophils (%) (Auto) 0.9 % (0.0-2.0) Neutrophils # (Auto) 3.8 10 ^3/uL (1.6-8.6) Lymphocytes # (Auto) 2.4 10 ^3/uL (0.4-5.4) Monocytes # (Auto) 0.5 10 ^3/uL (0-1.3) Eosinophils # (Auto) 0.1 10 ^3/uL (0-0.8) Basophils # (Auto) 0.1 10 ^3/uL (0-0.2) Nucleated Red Blood Cells 0.5 % Prothrombin Time 9.8 sec (9.3-11.8) Prothrombin Time INR 0.92 (0.9-1.15) Activated Partial Thromboplast Time 26.6 SEC (24.5-34.5) Sodium Level 137 mmol/L (136-145) Potassium Level 4.7 mmol/L (3.5-5.1) Chloride Level 99 mmol/L (98-107) Carbon Dioxide Level 27 mmol/L (20-31) Anion Gap 11 (5-15) Blood Urea Nitrogen 11 mg/dL (9-23) Creatinine 0.75 mg/dL (0.700-1.30) Glomerular Filtration Rate Calc 121 mL/min (>90) BUN/Creatinine Ratio 14.7 (10.0-20.0) Serum Glucose 352 mg/dL (74-106) Hemoglobin A1c 7.8 % A1C (<5.7) Calcium Level 10.1 mg/dL (8.7-10.4) Total Bilirubin 0.2 mg/dL (0.2-1.0) Aspartate Amino Transferase (AST) 33 U/L (13-40) Alanine Aminotransferase (ALT) 25 U/L (7-40) Alkaline Phosphatase 128 U/L (46-116) Total Protein 7.7 g/dL (5.7-8.2) Albumin 5.4 g/dL (3.2-4.8) Lipase 30 U/L (12-53) Thyroid Stimulating Hormone (TSH) 5.17 uIU/mL (0.55-4.78) Other Laboratory Tests 09/10/25 00:59 Brief Hx & Hospital Course: 35-year-old male presented to the ER with a chief complaint of intractable abdominal pain radiating to the back for 1 day. Patient reports drinking couple of beers on , and that the pain started yesterday, located epigastric, sharp, radiating to the back, associated nausea but no episodes of vomiting. Denied fever but reports chills. Reports 5 loose watery bowel movement in the past 1 day. Use unable to tolerate oral intake. Denied chest pain, palpitations, respiratory or urinary symptoms. He has been seen in this hospital in 2021 for pancreatitis secondary to alcoholism and has chronic Pancreatic cyst. In 2021 he completed EGD which showed gastritis with H. pylori infection, completed treatment per patient. Labs revealed elevated blood glucose levels and low vitamin-D levels. CT abdomen revealed no acute findings, decrease in size of pancreatic pseudocyst. Gastroenterology consultation was placed. Patient was started on antibiotics , pain killers, antiemetics, IV fluids and insulin. Patient left the hospital against medical advice. Condition at Discharge: Undetermined Final Diagnosis/Problems List Epigastric pain Possible acute on chronic pancreatitis Pancreatic pseudocyst Hepatic steatosis Vitamin-D deficiency Uncontrolled Hyperglycemia, type 2 diabetes mellitus History of gastritis History of H. pylori Alcohol use Discharge Disposition: AMA Discharge Instruct/Medications Scheduled Metformin Hydrochloride (Metformin Hcl), 500 MG PO DAILY, (Reported) Scheduled PRN Tramadol Hcl (Tramadol Hcl), 1 TAB PO BIDPRN PRN for PAIN SCALE 7 THRU 10, (Reported) Discharge Statement: "Patient was advised to return to the ER or call 911 if any headaches, dizziness, shortness of breath, chest pain, abdominal pain, bleeding, fevers, or worsening of medical condition. Patient was counseled about treatment plan, medications, possible side effects, patientverbalized understanding. All questions were answered to the best of my ability. This discharge took greater then 30 minutes in planning, reviewing documentation, counseling the patient, and discussing with other team members." ASSESSMENT ASSESSMENT Assessment Date of Service: Sep 10, 2025 Billing Provider: FE YBARRA MD Common Visit Codes: [id number] DISCH DAY >30min MALIKA MESA RESIDENT Sep 10, 2025 14:20
[2025-09-10] MEDS ORDERED: InsuLIN REG 1unit/0.01ml Soln (100units/ml) SC SCH (22:00)
== END 2025-09-10 13:32 | disposition left against medical advice (07) | DRG 282 ==
LOC: ER 23:49 → OVERFLOW 09-10 04:50
PROVIDERS: ADMIT Student in an Organized Health Care Education/Training Program; ATTEND Student in an Organized Health Care Education/Training Program
DX: K85.90 Acute pancreatitis without necrosis or infection, unspecified (principal); E11.65 Type 2 diabetes mellitus with hyperglycemia; F10.20 Alcohol dependence, uncomplicated; K76.0 Fatty (change of) liver, not elsewhere classified; K86.3 Pseudocyst of pancreas; E55.9 Vitamin D deficiency, unspecified; F17.200 Nicotine dependence, unspecified, uncomplicated; K86.0 Alcohol-induced chronic pancreatitis; Z53.29 Procedure and treatment not carried out because of patient's decision for other reasons; Z86.19 Personal history of other infectious and parasitic diseases; Y90.9 Presence of alcohol in blood, level not specified
CPT/HCPCS: 36415; 74177; 80053; 80307; 80320; 81001; 82306; 82962; 83036; 83690; 83735; 84439; 84443; 84480; 85025; 85610; 85730; 99291; G0378; J1815; J2405; J2470